=== PATIENT | female | born 1945 | race Caucasian/White ===

== ENCOUNTER → 2017-03-28 | Outpatient (CLI) | payer MEDICARE, BC ==
[~2017-03-28] MED LIST: CLARINEX 5MG5 MG PO; COREG12.5 MG PO; EXFORGE 10 MG-31 TAB PO; KLOR-CON M1010 MEQ PO; PROVENTIL0.09 MG/A1 IH; SINGULAIR10 MG PO; SYNTHROID0.1 MG PO
== END ==
LOC: MC.RAD 11:00
DX: Z12.31 Encounter for screening mammogram for malignant neoplasm of breast (principal)

== ENCOUNTER 2017-05-22 05:45 | Emergency (ER) | payer MEDICARE, BC ==
[~2017-05-22] VITALS: Ht 165.1 cm; Wt 68.2 kg
[2017-05-22 05:49] VITALS: TEMP 97.2
[2017-05-22] MEDS ORDERED: TAMBOCOR50 MG PO (06:06)
[2017-05-22] MEDS ORDERED: SYNTHROID0.05 MG/TA PO (06:09)
[2017-05-22] MEDS ORDERED: CATAPRES 0.1MG0.1 MG PO (06:09)
[2017-05-22 06:11] LABS: BASO # 0.1 (0.0-0.2); BASO % 0.9 % (0.0-2.0); EOS # 0.1 (0.0-0.7); GRAN # 3.4 (1.4-6.5); GRAN % 52.9 % (42.2-75.2); HEMATOCRIT 38.9 % (37.0-47.0); HEMOGLOBIN 13.4 g/dl (12.5-16.0); LYMPH # 2.5 (1.2-3.4); LYMPH % 38.1 % (20.0-51.0); MEAN CELL VOLUME 84 fl (80.0-100.0); MEAN CORPUSCULAR HEMOGLOBIN 29 pg (27.0-31.0); MEAN CORPUSCULAR HGB CONC 34 g/dl (33.0-37.0); MEAN PLATELET VOLUME 9.6 fl (7.4-10.4); MONO # 0.4 (0.1-0.6); MONO % 5.9 % (1.7-9.3); PLATELET COUNT 279 K/mm3 (130-400); RED BLOOD COUNT 4.66 M/mm3 (4.10-5.30); REDCELL DISTRIBUTION WIDTH-CV 12.2 % (11.5-14.5)
[2017-05-22] MEDS ORDERED: NORVASC 10MG10 MG PO (06:11)
[2017-05-22] MEDS ORDERED: ASPIRIN E.C. 8181 MG PO (06:15)
[2017-05-22 06:25] LABS: ALANINE AMINOTRANSFERASE 24 U/L (9-52); ALBUMIN 4.7 gm/dL (3.5-5.0); ALKALINE PHOSPHATASE 74 U/L (50-136); ANION GAP 12 mmol/L (7-16); AST,SGOT 25 U/L (15-37); BILIRUBIN,TOTAL 0.4 mg/dL (0.0-1.0); BLOOD UREA NITROGEN 21 mg/dL (7-17); CALCIUM 9.7 mg/dL (8.4-10.2); CARBON DIOXIDE 24 mmol/L (22-30); CHLORIDE 107 mmol/L (98-107); CREATININE, serum 0.86 mg/dL (0.52-1.25); GLUCOSE 101 mg/dL (74-106); POTASSIUM 3.7 mmol/L (3.4-5.0); SODIUM 143 mmol/L (137-145); TOTAL PROTEIN 7.6 gm/dL (6.4-8.2)
[2017-05-22 06:37] LABS: TROPONIN-I < 0.012 ng/mL (0.000-0.034)
[2017-05-22] MEDS ORDERED: ELIQUIS 5MG PO (08:08)
[2017-05-22 09:18] VITALS: BP 129/88; PULSE 56
== END 2017-05-22 09:17 | disposition home or self-care (01) ==
LOC: COL.ER 05:45
PROVIDERS: Emergency Medicine
DX: I48.91 Unspecified atrial fibrillation (principal); Z90.89 Acquired absence of other organs; Z79.82 Long term (current) use of aspirin
CPT/HCPCS: J1650; J2704; J7030

== ENCOUNTER → 2017-05-23 | Outpatient (CLI) | payer MEDICARE, BC ==
[~2017-05-23] MED LIST changes: +ASPIRIN E.C. 8181 MG PO; +CATAPRES 0.1MG0.1 MG PO; +ELIQUIS 5MG PO; +NORVASC 10MG10 MG PO; +SYNTHROID0.05 MG/TA PO; +TAMBOCOR50 MG PO
== END ==
LOC: ZCOL.LAB 13:47
DX: I48.91 Unspecified atrial fibrillation (principal)

== ENCOUNTER → 2017-07-08 | Outpatient (CLI) | payer MEDICARE, BC | LOC: COL.RAD 10:28 | DX: J01.01 Acute recurrent maxillary sinusitis (principal) ==

== ENCOUNTER 2017-08-14 16:34 | Emergency (ER) | payer MEDICARE, BC ==
[~2017-08-14] VITALS: Ht 162.6 cm; Wt 72.3 kg
[2017-08-14 16:36] VITALS: TEMP 98.1
[2017-08-14] MEDS ORDERED: SINGULAIR 110 MG/TAB PO (16:59)
[2017-08-14] MEDS ORDERED: PRADAXA 150MG150 MG PO (17:00)
[2017-08-14] MEDS ORDERED: HCTZ12.5TAB PO (17:00)
[2017-08-14] MEDS ORDERED: COREG 6.256.25 MG/TA PO (17:00)
[2017-08-14] MEDS ORDERED: NORVASC 10MG10 MG PO (17:01)
[2017-08-14] MEDS ORDERED: PROTONIX 40MG T40 MG PO (17:01)
[2017-08-14] MEDS ORDERED: EDLUAR10 MG SL (17:01)
[2017-08-14] MEDS ORDERED: SYNTHROID0.05 MG/TA PO (17:01)
[2017-08-14] MEDS ORDERED: CLARITIN 1010 MG/TAB PO (17:02)
[2017-08-14 17:11] LABS: BASO # 0.1 (0.0-0.2); BASO % 0.7 % (0.0-2.0); EOS # 0.1 (0.0-0.7); EOS % 1.6 % (0-4.0); GRAN # 4.3 (1.4-6.5); GRAN % 60.8 % (42.2-75.2); LYMPH # 2.1 (1.2-3.4); LYMPH % 29.8 % (20.0-51.0); MEAN CELL VOLUME 85 fl (80.0-100.0); MEAN CORPUSCULAR HGB CONC 35 g/dl (33.0-37.0); MONO # 0.5 (0.1-0.6); MONO % 6.8 % (1.7-9.3); PLATELET COUNT 281 K/mm3 (130-400); RED BLOOD COUNT 3.84 M/mm3 (4.10-5.30); REDCELL DISTRIBUTION WIDTH-CV 13.1 % (11.5-14.5)
[2017-08-14 17:23] LABS: ALBUMIN 4.2 gm/dL (3.5-5.0); BILIRUBIN,TOTAL 0.3 mg/dL (0.0-1.0); CALCIUM 9.2 mg/dL (8.4-10.2); POTASSIUM 3.6 mmol/L (3.4-5.0); TOTAL PROTEIN 7.7 gm/dL (6.4-8.2)
[2017-08-14 17:37] LABS: TROPONIN-I 0.753 ng/mL (0.000-0.034)
[2017-08-14 17:46] LABS: HEMATOCRIT 32.7 % (37.0-47.0); HEMOGLOBIN 11.3 g/dl (12.5-16.0); MEAN CORPUSCULAR HEMOGLOBIN 29 pg (27.0-31.0)
[2017-08-14 18:56] LABS: COLLECTION METHOD CLEAN CATCH
[2017-08-14 19:03] LABS: PH 7 (5-8); SQUAMOUS EPITHELIAL 0-2 /hpf; URINE APPEARANCE Clear; URINE BACTERIA None Seen /hpf; URINE BILIRUBIN Negative (NEGATIVE); URINE BLOOD Negative (NEGATIVE); URINE COLOR Colorless; URINE GLUCOSE Negative (NEGATIVE); URINE KETONE Negative (NEGATIVE); URINE LEUKOCYTE ESTERASE Negative (NEGATIVE); URINE NITRATE Negative (NEGATIVE); URINE PROTEIN(semi-quant) Negative (NEGATIVE); URINE RBC 0-2 /hpf; URINE UROBILINOGEN Negative (NEGATIVE)
[2017-08-14] MEDS ORDERED: CARAFATE 1GM1 G PO (19:41)
[2017-08-14] MEDS ORDERED: CEFTIN500 MG PO (19:41)
[2017-08-14 19:50] VITALS: BP 152/84; PULSE 75
== END 2017-08-14 19:50 | disposition home or self-care (01) ==
LOC: COL.ER 16:34
PROVIDERS: Emergency Medicine
DX: I97.89 Other postprocedural complications and disorders of the circulatory system, not elsewhere classified (principal); R14.0 Abdominal distension (gaseous); R79.89 Other specified abnormal findings of blood chemistry; I48.91 Unspecified atrial fibrillation; N05.9 Unspecified nephritic syndrome with unspecified morphologic changes; I10 Essential (primary) hypertension; Z90.89 Acquired absence of other organs; Z90.710 Acquired absence of both cervix and uterus
CPT/HCPCS: J7030

== ENCOUNTER → 2017-08-15 | Outpatient (CLI) | payer MEDICARE, BC ==
[~2017-08-15] MED LIST changes: +CARAFATE 1GM1 G PO; +CEFTIN500 MG PO; +CLARITIN 1010 MG/TAB PO; +COREG 6.256.25 MG/TA PO; +EDLUAR10 MG SL; +HCTZ12.5TAB PO; +PRADAXA 150MG150 MG PO; +PROTONIX 40MG T40 MG PO; +SINGULAIR 110 MG/TAB PO
== END ==
LOC: COL.LAB 09:09
DX: Z01.89 Encounter for other specified special examinations (principal)

== ENCOUNTER → 2019-01-10 | Outpatient (CLI) | payer MEDICARE, BC ==
[~2019-01-10] MED LIST changes: +EDOX15TA; +EDOX60TA1 PO; +XANAX 0.5MG0.5 MG PO; +[UNRECOGNIZED DRUG - OTHER] PO
== END ==
LOC: MC.RAD 09:00
DX: Z12.31 Encounter for screening mammogram for malignant neoplasm of breast (principal)

== ENCOUNTER → 2019-01-11 | Outpatient (CLI) | payer MEDICARE, BC | LOC: COL.RAD 07:53 | DX: K92.89 Other specified diseases of the digestive system (principal); R14.0 Abdominal distension (gaseous) ==

== ENCOUNTER → 2019-04-18 | Outpatient (CLI) | payer MEDICARE, BC | LOC: COL.RAD 07:56 | DX: K76.89 Other specified diseases of liver (principal) ==

== ENCOUNTER 2023-03-30 19:41 | Observation (INO) | payer MEDICARE, BC ==
[~2023-03-30] VITALS: Ht 162.6 cm; Wt 70.0 kg
[2023-03-30 20:23] LABS: BASO # 0.1 K/mm3 (0.0-0.2); BASO % 0.8 % (0.0-2.0); EOS # 0.2 K/mm3 (0.0-0.7); EOS % 2.9 % (0.0-4.0); HEMOGLOBIN 12.9 g/dl (12.5-16.0); LYMPH # 2.1 K/mm3 (1.2-3.4); LYMPH % 31.2 % (20.0-51.0); MEAN CELL VOLUME 86 fl (80.0-100.0); MEAN CORPUSCULAR HEMOGLOBIN 28 pg (27-31); MEAN CORPUSCULAR HGB CONC 33 g/dl (33.0-37.0); MEAN PLATELET VOLUME 9.9 fl (7.4-10.4); MONO # 0.3 K/mm3 (0.1-0.6); MONO % 5.1 % (1.7-9.3); PLATELET COUNT 298 K/mm3 (130-400); RED BLOOD COUNT 4.54 M/mm3 (4.10-5.30); REDCELL DISTRIBUTION WIDTH-CV 13.1 % (11.5-14.5)
[2023-03-30 20:30] VITALS: BP 155/101; O2SAT 98
[2023-03-30 20:30] LABS: ALANINE AMINOTRANSFERASE 16 U/L (0-55); ALBUMIN 4.1 gm/dL (3.4-4.8); ALKALINE PHOSPHATASE 69 U/L (40-150); ANION GAP 12 mmol/L (7-16); AST,SGOT 20 U/L (5-34); BILIRUBIN,TOTAL 0.3 mg/dL (0.2-1.2); BLOOD UREA NITROGEN 20 mg/dL (10-20); CALCIUM 9.6 mg/dL (8.4-10.2); CARBON DIOXIDE 23 mmol/L (23-31); CHLORIDE 110 mmol/L (98-107); CREATININE, serum 0.93 mg/dL (0.57-1.11); GLUCOSE 112 mg/dL (70-99); POTASSIUM 3.5 mmol/L (3.5-4.5); SODIUM 145 mmol/L (136-145); TOTAL PROTEIN 7.9 gm/dL (6.2-8.1)
[2023-03-30 20:36] LABS: TROPONIN-I < 0.010 ng/mL (0.00-0.033)
[2023-03-30 22:32] VITALS: BP 154/102; PULSE 117
[2023-03-30 22:54] VITALS: BP 130/92; PULSE 117
[2023-03-30] MEDS ORDERED: PEPCID 20MG TAB20 MG PO (23:06)
[2023-03-30] MEDS ORDERED: PROTONIX 40MG T40 MG PO (23:06)
[2023-03-30] MEDS ORDERED: NORVASC 5MG5 MG/TAB PO (23:07)
[2023-03-31] VITALS (13 sets, daily range): BP systolic 112–162; BP diastolic 62–741; PULSE 48–77; TEMP 97.3–98.4
--- NOTE | 2023-03-31 02:35 | NUR ---
patient arrived from ED around 0030, alert and oriented x4. pt ambulate with a steady gait for transfer to bed. pt denies chest pain and shortness of breath at this time. reporting feeling some anxiety, per pt request 0.5 mg zanax given for anxiety. IV in RAC patent, site clean dry and intact with cardizem drip running at 15ml/hr. 0153- tele notified RN about pt's HR in the 30s, 40s, and 50s. EKG ordered, vitals measured, Nasima [employer] notified at this time, pt converted to sinus shira from afib, cardizem gtt stopped at this time. pt has no remarkable skin findings, and educated on sending home medications back home with today and being on fall precautions , pt verbally understood. pt has no further needs, questions, or concerns. fall precautions in place, call light within reach. will continue to monitor.
[2023-03-31 06:12] LABS: BASO # 0.1 K/mm3 (0.0-0.2); BASO % 0.7 % (0.0-2.0); EOS # 0.2 K/mm3 (0.0-0.7); GRAN # 3.9 K/mm3 (1.4-6.5); GRAN % 58.9 % (42.2-75.2); HEMOGLOBIN 11.3 g/dl (12.5-16.0); LYMPH # 2.1 K/mm3 (1.2-3.4); LYMPH % 30.6 % (20.0-51.0); MEAN CELL VOLUME 86 fl (80.0-100.0); MEAN CORPUSCULAR HEMOGLOBIN 29 pg (27-31); MEAN CORPUSCULAR HGB CONC 33 g/dl (33.0-37.0); MONO # 0.5 K/mm3 (0.1-0.6); MONO % 6.7 % (1.7-9.3); PLATELET COUNT 288 K/mm3 (130-400); RED BLOOD COUNT 3.96 M/mm3 (4.10-5.30); REDCELL DISTRIBUTION WIDTH-CV 13.3 % (11.5-14.5)
[2023-03-31 06:13] LABS: HEMATOCRIT 34.2 % (37.0-47.0)
[2023-03-31 06:28] LABS: CALCIUM 8.8 mg/dL (8.4-10.2); CREATININE, serum 0.9 mg/dL (0.57-1.11); POTASSIUM 4.1 mmol/L (3.5-4.5)
[2023-03-31] MEDS ORDERED: CALCIUM CITRAT200 M2 PO (09:14)
[2023-03-31] MEDS ORDERED: ZYRTEC5 MG PO (09:14)
[2023-03-31] MEDS ORDERED: XANAX 0.5MG0.5 MG PO (09:14)
[2023-03-31] MEDS ORDERED: PRESERVISION1 SGL PO (09:15)
[2023-03-31] MEDS ORDERED: MAG-OX 400400 MG/TAB PO (09:16)
--- NOTE | 2023-03-31 10:44 | NUR ---
Initial visit; Patient and her family thanked Logging Worker for introducing herself and visiting with patient about her home and her experience at [facility]. Emily is pleased with her Physicians and the care she is receiving and knows there are a number of medical personnel involved in her care. She is [employer]ism and knows that God is with her at all times. She thanked Logging Worker for offering a "[place]" and wishing her well.
--- NOTE | 2023-03-31 13:08 | NUR ---
Social Work student identified self as Social Work student and completed intake with patient and at [facility]. Patient stated that she lives in [place], [place] with her Nadir (ph#[phone]). Patient's primary care provider is Dr. Wills in [place], [place]. Patient prefers to use [facility] in [place], [place] for medications. Patient reported that she is independent with ADLs at home and does not use any DME. Patient stated that she does not currently have any services within the home and does not anticipate that she will need any set up prior to discharge. Patient plans to return home at time of discharge. Patient is covered by Medicare and [employer] of [place]. Patient stated that her [facility]PO[facility] is appointed to her Nadir. Discharge Plan: Home
--- NOTE | 2023-03-31 23:43 | NUR ---
patient lying in bed alert and oriented x4. pt denies chest pain and shortness of breath. IV in RAC is patent, site is clean dry and intact. no remarkable skin findings noted. pt has no further needs, questions, or concerns at this time. fall precautions in place, call light within reach. will continue to monitor.
[2023-04-01 00:45] VITALS: BP_SYST 135
[2023-04-01 03:25] VITALS: BP 157/76; PULSE 73; TEMP 97.9
[2023-04-01 04:51] VITALS: BP_SYST 156
[2023-04-01 06:18] LABS: HEMOGLOBIN 11.6 g/dl (12.5-16.0); MEAN CELL VOLUME 85 fl (80.0-100.0); MEAN CORPUSCULAR HEMOGLOBIN 28 pg (27-31); MEAN CORPUSCULAR HGB CONC 33 g/dl (33.0-37.0); MEAN PLATELET VOLUME 10.2 fl (7.4-10.4); PLATELET COUNT 274 K/mm3 (130-400); RED BLOOD COUNT 4.08 M/mm3 (4.10-5.30); REDCELL DISTRIBUTION WIDTH-CV 13.1 % (11.5-14.5)
[2023-04-01 06:27] LABS: CALCIUM 8.7 mg/dL (8.4-10.2); CREATININE, serum 0.95 mg/dL (0.57-1.11); MAGNESIUM 2.1 mg/dL (1.6-2.6); POTASSIUM 3.7 mmol/L (3.5-4.5)
[2023-04-01 06:30] LABS: HEMATOCRIT 34.7 % (37.0-47.0)
[2023-04-01 07:16] VITALS: BP 137/75; PULSE 60; TEMP 97.6
[2023-04-01 08:30] VITALS: BP_SYST 137
--- NOTE | 2023-04-01 08:30 | NUR ---
PT RESTING IN BED UPON ENTERING. ASSESSMENT DONE, MEDS GIVEN PER ORDER. DR ZEPEDA AT BEDSIDE, PT ASKING ABOUT DISCHARGE PLANS AND ALL QUESTIONS ANSWERED BY PROVIDER. PT DENIES PAIN OR ANY TYPE OF DISCOMFORT AT THIS TIME. POTASSIUM REPLACEMENT STARTED. PT DENIES NEEDS AT THIS TIME. BED IN LOWEST POSITION, BED ALARM ON, CALL LIGHT IN REACH
[2023-04-01] MEDS ORDERED: TOPROL XL 50MG50 MG PO (08:45)
--- NOTE | 2023-04-01 11:17 | NUR ---
5 TABLETS OF SAVAYSA 60MG RETURNED TO PT, FORM SIGNED BY PT. PTS IV IN RIGHT AC AND TELEMETRY REMOVED. PT DENIES NEEDS AT THIS TIME.
--- NOTE | 2023-04-01 11:53 | NUR ---
PT DRESSED IN PERSONAL CLOTHES. DISCHARGE INSTRUCTIONS GIVEN, PT AND SPOUSE VERBALIZED UNDERSTANDING AND ALL QUESTIONS ANSWERED. PT ESCORTED VIA WHEELCHAIR TO PERSONAL VEHICLE BY CARTER MEAD.
== END 2023-04-01 11:54 | disposition home or self-care (01) ==
LOC: COL.ER 19:41 → MEDICAL 22:23
PROVIDERS: Emergency Medicine; Nurse Practitioner Family; ADMIT Internal Medicine
DX: I48.0 Paroxysmal atrial fibrillation (principal); I47.19 Other supraventricular tachycardia; I11.9 Hypertensive heart disease without heart failure; E03.9 Hypothyroidism, unspecified; K21.9 Gastro-esophageal reflux disease without esophagitis; E87.6 Hypokalemia; Z79.899 Other long term (current) drug therapy; Z98.890 Other specified postprocedural states; Z79.890 Hormone replacement therapy
CPT/HCPCS: G0378; J2060; J7030